=== PATIENT | male | born 2000 | race Caucasian/White ===

== ENCOUNTER 2018-12-31 12:53 | Emergency (ER) | payer OTHER ==
[~2018-12-31] VITALS: Ht 182.8 cm; Wt 99.8 kg
[~2018-12-31 12:53] MED LIST: AMOXICILLIN500 MG PO; BACTRIM DS 8001 TA1 PO; KEFLEX500 MG PO; NKHM
[2018-12-31 12:54] VITALS: BP 101/59
[2018-12-31] MEDS ORDERED: CEPHALEXIN500 M1 PO (14:03)
[2018-12-31] MEDS ORDERED: ANTIBIOTIC28.4 GM T (14:03)
== END 2018-12-31 14:44 | disposition home or self-care (01) ==
LOC: ED 12:53
DX: S61.216A Laceration without foreign body of right little finger without damage to nail, initial encounter (principal); Z79.2 Long term (current) use of antibiotics; W26.8XXA Contact with other sharp object(s), not elsewhere classified, initial encounter; Y93.89 Activity, other specified; Y92.89 Other specified places as the place of occurrence of the external cause; Y99.8 Other external cause status

== ENCOUNTER 2021-01-17 07:05 | Emergency (ER) | payer OTHER ==
[~2021-01-17] VITALS: Ht 182.8 cm; Wt 104.3 kg
[~2021-01-17 07:05] MED LIST changes: +ANTIBIOTIC28.4 GM T; +CEPHALEXIN500 M1 PO
[2021-01-17 07:22] VITALS: BP 101/72
[2021-01-17] MEDS ORDERED: AMOXICILLIN875 MG PO (07:50)
== END 2021-01-17 08:12 | disposition home or self-care (01) ==
LOC: ED 07:05
DX: J02.9 Acute pharyngitis, unspecified (principal)

== ENCOUNTER 2021-12-24 21:10 | Emergency (ER) | payer OTHER ==
[~2021-12-24] VITALS: Ht 182.8 cm; Wt 104.3 kg
[~2021-12-24 21:10] MED LIST changes: +AMOXICILLIN875 MG PO
[2021-12-24 21:20] VITALS: BP 139/66
[2021-12-24] MEDS ORDERED: IBU800 MG PO (22:38)
[2021-12-24] MEDS ORDERED: TYLENOL325 M1 PO (22:38)
== END 2021-12-24 22:55 | disposition home or self-care (01) ==
LOC: ED 21:10
DX: U07.1 COVID-19 (principal)

== ENCOUNTER 2022-02-21 11:26 | Emergency (ER) | payer OTHER ==
[~2022-02-21] VITALS: Ht 182.8 cm; Wt 104.3 kg
[~2022-02-21 11:26] MED LIST changes: +IBU800 MG PO; +TYLENOL325 M1 PO
[2022-02-21 11:46] VITALS: BP 125/71
== END 2022-02-21 13:02 | disposition left against medical advice (07) ==
LOC: ED 11:26
DX: J00 Acute nasopharyngitis [common cold] (principal); Z53.21 Procedure and treatment not carried out due to patient leaving prior to being seen by health care provider

== ENCOUNTER 2023-10-06 18:23 | Emergency (ER) | payer SELFPAY ==
[~2023-10-06] VITALS: Wt 106.6 kg
[2023-10-06 18:36] VITALS: BP 124/61
== END 2023-10-06 19:13 | disposition home or self-care (01) ==
LOC: ED 18:23
DX: R55 Syncope and collapse (principal); D64.9 Anemia, unspecified; Z98.890 Other specified postprocedural states

== ENCOUNTER 2024-10-15 12:59 | Emergency (ER) | payer SELFPAY ==
[~2024-10-15] VITALS: Ht 182.8 cm; Wt 102.1 kg
[2024-10-15 13:24] VITALS: BP 114/71
[2024-10-15] MEDS ORDERED: SODIUM CHLORIDE 0.9% 1,000 ML IV ONE (13:35)
[2024-10-15] MEDS ORDERED: Ondansetron Hydrochloride 4 MG/2 ML VIAL IV ONE (13:35)
[2024-10-15 13:52] LABS: BASO # 0.0 10*3/uL (0.0-0.1); BASO % 0.3 % (0.0-1.0); EOS # 0.1 10*3/uL (0.0-0.4); EOS % 0.5 % (1.0-4.0); MEAN CELL VOLUME 89.8 fl (80.0-94.0); MEAN CORPUSCULAR HGB 30.8 pg (27.0-31.0); MEAN PLATELET VOLUME 8.7 fl (9.6-12.3); MONO # 0.9 10*3/uL (0.1-1.0); MONO % 9.7 % (3.0-9.0); NEUT # 7.3 10*3/uL (2.3-7.9); NEUT % 76.9 % (47.0-73.0); NUCLEATED RED BLOOD CELL 0.0 % (0.0-0.0); NUCLEATED RED BLOOD CELL 0.0 10*3/uL (0.0-0.0); PLATELET COUNT AUTOMATED 241 10*3/uL (130-400); RED CELL DISTRI WIDTH 12.1 % (0-14.5)
[2024-10-15 14:11] LABS: BUN 8 mg/dl (9-23); SGPT/ALT 17 U/L (5-49)
[2024-10-15] MEDS ORDERED: IOHEXOL 300 MG/ML 100 ML VIAL IV ONE (14:45)
[2024-10-15 16:22] LABS: BILIRUBIN Negative (Negative); BLOOD Trace-Lysed (Negative); CLARITY Clear (Clear); COLOR Yellow (Yellow); KETONE Trace (Negative); LEUKO ESTERASE Negative (Negative); NITRITE Negative (Negative); PH 6.0 (4.5-8.0); SPECIFIC GRAVITY >= 1.030 (1.001-1.030); UROBILINOGEN 1.0 E.U./dl (0.0-1.0)
[2024-10-15 16:34] LABS: BACTERIA TRACE; MUCOUS 2+
[2024-10-15] MEDS ORDERED: CIPRO500 MG PO (17:50)
[2024-10-15] MEDS ORDERED: METRONIDAZOLE500 M1 PO (17:50)
== END 2024-10-15 17:39 | disposition left against medical advice (07) ==
LOC: ED 12:59
PROVIDERS: Nurse Practitioner Family
DX: K52.9 Noninfective gastroenteritis and colitis, unspecified (principal); R10.84 Generalized abdominal pain; R51.9 Headache, unspecified